=== PATIENT | female | born 1950 | race Caucasian/White ===

== ENCOUNTER 2019-01-28 13:55 | Outpatient (CLI) | payer MEDICARE, BC | END 2019-01-28 23:59 | disposition home or self-care (01) | LOC: CFH 13:55 | PROVIDERS: ATTEND Internal Medicine | DX: Z02.9 Encounter for administrative examinations, unspecified (principal) ==

== ENCOUNTER 2019-03-05 06:39 | Outpatient (CLI) | payer MEDICARE, BC | END 2019-03-05 23:59 | disposition home or self-care (01) | LOC: RAD 06:39 | PROVIDERS: ATTEND Internal Medicine | DX: K44.9 Diaphragmatic hernia without obstruction or gangrene (principal); K21.9 Gastro-esophageal reflux disease without esophagitis | CPT/HCPCS: 74241 ==